=== PATIENT | female | born 1950 | race Caucasian/White ===

== ENCOUNTER 2017-05-18 09:40 | Emergency (ER) | payer OTHER ==
[2017-05-18] MEDS: CEPASTAT LOZENGE MT (11:46)
== END 2017-05-18 11:47 | disposition home or self-care (01) ==
LOC: FTE 09:40
DX: J06.9 Acute upper respiratory infection, unspecified (principal); J45.909 Unspecified asthma, uncomplicated
CPT/HCPCS: 99283; Z7502